=== PATIENT | female | born 1960 | race Caucasian/White ===

== ENCOUNTER → 2016-04-30 | Outpatient (CLI) | payer OTHER ==
--- NOTE | 2016-04-30 17:31 | DX ---
Right ankle 3 views History: Follow up talar neck avulsion fracture. Comparison: Foot same day, right ankle March 19, 2016. Findings: There is no visible residual lucency associated with a nondisplaced avulsion fracture at th e dorsal aspect of the talar neck. Alignment is normal. No new fracture is identified. The talar dome and ankle mortise are intact. Impression: Interval healing of a talar neck avulsion fracture.
--- NOTE | 2016-04-30 17:31 | DX ---
Right foot 3 views History: Followup talar neck avulsion fracture. Comparison: Right foot same day, Right foot and ankle March 19, 2016. Findings: There is no residual lucency associated with a nondisplaced dorsal talar neck avulsion frac ture. No new fracture is identified. Alignment is normal. Apparent fusion of the 3rd metatarsal and l ateral cuneiform is again noted. Impression: Interval healing of a dorsal talar neck avulsion fracture.
== END ==
LOC: BMCIMAGING 15:26
PROVIDERS: ATTEND Podiatrist Foot & Ankle Surgery
DX: S92.114D Nondisplaced fracture of neck of right talus, subsequent encounter for fracture with routine healing (principal)

== ENCOUNTER → 2016-05-31 | Outpatient (CLI) | payer OTHER ==
--- NOTE | 2016-05-31 17:39 | DX ---
DEXA Bone Mineral Densitometry Clinical Indications: Postmenopausal, family history of osteoporosis, history of wrist and ankle fra cture, history of breast cancer, thyroid disease on levothyroxine, screening for osteoporosis Comparison: 11/13/2012 (low bone density) Technique: Bone Mineral Densitometry (BMD) by Dual Energy X-Ray Absorptiometry (DEXA) was performed utilizing the LYFE Kitchen scanner. The lumbar spine was evaluated in the AP projection. The left hip and forearm were evaluated in the AP projection. Vertebral fracture assessment was also performe d. AP Lumbar Spine: The L1, L2, L3 and L4 vertebral bodies were evaluated. BMD: 1.085 gm/cm2 T-score: -0.9 SD Z-score: 0.6 SD No significant change. AP Left Hip: Neck BMD: 0.843 gm/cm2 T-score: -1.4 SD Z-score: 0.1 SD Total BMD is significantly decreased by 8.7% AP Left Forearm, 04/24: BMD: 0.794 gm/cm2 T-score: -0.9 SD Z-score: 0.3 SD AP Right forearm: 04/24 BMD: 0.818 g/cm2 T score: -0.7 Z score: 0 Significantly decreased by 7.7% Vertebral Fracture Assessment: No significant fracture deformity. No prevertebral aortic calcificati on, significant marginal bone spurring, facet arthrosis, or intrinsic vertebral body sclerosis that would effect the accuracy of the lumbar spine BMD measurement. Conclusion: Considering the lowest measured site, the patient has low bone density. The ten year FRAX risk for any major osteoporotic fracture is 20.6% and for a hip fracture is 1%. Any bone loss in this patient is probably related to aging or estrogen deficiency. According to the recommendations of the National Osteoporosis Foundation, this patient would be a goo d candidate for bone strengthening pharmacologic intervention. To prevent osteoporosis and to promote the patient's bone density, the following recommendations shou ld be considered: 1. Pursue a regular regimen of weightbearing and muscle strengthening exercises in order to reduce t he risk of falls and fractures (as tolerated by the patient's general medical condition). 2. Ensure that daily dietary calcium uptake is maximized. 3. Consider checking the serum vitamin D level. Ensure that intake of vitamin D is 600 IU per day (fo r all ages through 70) . 4. Consider follow-up DEXA scan in one year if the patient begins pharmacologic intervention or in 2 years if she follows a more conservative approach.
== END ==
LOC: FIMAGING 09:07
PROVIDERS: ATTEND Nurse Practitioner Obstetrics & Gynecology
DX: Z13.820 Encounter for screening for osteoporosis (principal); Z78.0 Asymptomatic menopausal state; Z82.62 Family history of osteoporosis; Z80.3 Family history of malignant neoplasm of breast; E03.9 Hypothyroidism, unspecified; M85.80 Other specified disorders of bone density and structure, unspecified site

== ENCOUNTER 2016-09-20 14:15 | Emergency (ER) | payer OTHER ==
[2016-09-20 14:31] VITALS: TEMP 97.7
--- NOTE | 2016-09-20 14:31 | CPEKG ---
Heart Rate: 77 RR Interval: 779 P-R Interval: 124 QRSD Interval: 74 QT Interval: 364 QTC Interval: 412 P [place]: 83 QRS [place]: 78 T Wave [place]: 46 EKG Severity - BORDERLINE ECG - EKG Impression: SINUS RHYTHM EKG Impression: BORDERLINE T WAVE ABNORMALITIES Electronically Signed By: Speedy Ledezma 20-Sep-2016 15:02:30
[2016-09-20] MEDS ORDERED: ASPIRIN 81 MG CHEWABLE TAB PO ONE (14:55)
--- NOTE | 2016-09-20 14:59 | EDPHY ---
H & P Stated Complaint: CP started last night, Sent by manager digital r/o clot Time Seen by Provider: 09/20/16 14:40 HPI/ROS: CHIEF COMPLAINT: Left-sided chest pain HISTORY OF PRESENT ILLNESS: The patient is a 56-year-old female who comes to the emergency department complaining of 12 hours left-sided chest pain. She has twinges of pain which last for several seconds at a time. She states that she has had these for her entire life but they have been very infrequent until today. Today it is constant. She denies shortness of breath. It does seem to hurt more certain movements. She was worried about pericarditis. No recent fevers or infections. She does have a history of breast cancer, bilateral mastectomy and radiation therapy that was discontinued about 2 years ago. 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 She has been doing well for the last few months. She denies lightheadedness or dizziness. She has not had a fever. No nausea vomiting or GI symptoms. She does have a history of familial hypercholesterolemia as well as a brother at 38 from heart disease. REVIEW OF SYSTEMS: Constitutional: denies: chills, fever, recent illness, recent injury EENTM: denies: blurred vision, double vision, nose congestion Respiratory: denies: cough, shortness of breath Cardiac: See HPI Gastrointestinal/Abdominal: denies: abdominal pain, diarrhea, nausea, vomiting, blood streaked stools Genitourinary: denies: dysuria, frequency, hematuria, pain Musculoskeletal: denies: joint pain, muscle pain Skin: denies: lesions, rash, jaundice, bruising Neurological: denies: headache, numbness, paresthesia, tingling, dizziness, weakness Hematologic/Lymphatic: denies: blood clots, easy bleeding, easy bruising Immunologic/allergic: denies: HIV/AIDS, transplant EXAM: GENERAL: Well-appearing, well-nourished and in no acute distress. HEAD: Atraumatic, normocephalic. EYES: Pupils equal round and reactive to light, extraocular movements intact, sclera anicteric, conjunctiva are normal. ENT: TMs normal, nares patent, oropharynx clear without exudates. Moist mucous membranes. NECK: Normal range of motion, supple without lymphadenopathy or JVD. LUNGS: Breath sounds clear to auscultation bilaterally and equal. No wheezes rales or rhonchi. HEART: Regular rate and rhythm without murmurs, rubs or gallops. ABDOMEN: Soft, nontender, normoactive bowel sounds. No guarding, no rebound. No masses appreciated. BACK: No CVA tenderness, no spinal tenderness, step-offs or deformities EXTREMITIES: Normal range of motion, no pitting or edema. No clubbing or cyanosis. NEUROLOGICAL: Cranial nerves II through XII grossly intact. Normal speech, normal gait. 5/5 strength, normal movement in all extremities, normal sensation PSYCH: Normal mood, normal affect. SKIN: Warm, dry, normal turgor, no visible rashes or lesions. Source: Patient Exam Limitations: No limitations - Personal History Current Tetanus Diphtheria and Acellular Pertussis (TDAP): Yes - Medical/Surgical History Hx Asthma: No Hx Chronic Respiratory Disease: No Hx Diabetes: No Hx Cardiac Disease: No Hx Renal Disease: No Hx Cirrhosis: No Hx Alcoholism: No Hx HIV/AIDS: No Hx Splenectomy or Spleen Trauma: No Other PMH: Breast CX dx in July 2014 w/double mastectomy, Right anterior hip replacement, high cholesterol - Family History Significant Family History: No pertinent family hx - Social History Smoking Status: Former smoker Alcohol Use: Sober Drug Use: None Constitutional: Initial Vital Signs Temperature (C) 36.5 C 09/20/16 14:22 Heart Rate 80 09/20/16 14:22 Respiratory Rate 16 09/20/16 14:22 Blood Pressure 126/73 H 09/20/16 14:22 O2 Sat (%) 97 09/20/16 14:22 O2 Delivery Mode Room Air Allergies/Adverse Reactions: amoxicillin [Amoxicillin] Allergy (Verified 09/24/11 18:58) Milk Containing Products [dairy] Allergy (Verified 09/20/16 14:33) Penicillins Allergy (Verified 09/20/16 14:32) Home Medications: Medication Instructions Recorded Cetirizine [ZyrTEC 10 mg (RX)] 0 mg PO DAILY 09/24/11 Levothyroxine [Synthroid 25 mcg 0 mcg PO DAILY06 09/24/11 (RX)] Simvastatin [Zocor 5 mg] 0 mg PO AD 09/24/11 Anastrozole [Arimidex 1 mg (*)] 09/20/16 Aspirin [Aspirin 81mg (*)] 81 mg PO DAILY 09/20/16 Calcium [HI-BERNY] 500 mg PO 09/20/16 Dha/Epa/Mv/Dng Mikael/Hrb42 [Pms 1 each PO 09/20/16 Women's Formula Tab] Glucosamine Sulfate Dipot Chlr 09/20/16 [Glucosamine] L.acidoph,Paracasei, B.lactis 1 each PO 09/20/16 [Probiotic] Valacyclovir HCl [Valacyclovir] 09/20/16 Medical Decision Making - Diagnostics EKG Interpretation: An EKG obtained and was read and documented in trace view. Please see trace view for full reading and report. Sinus rhythm, no acute ischemic changes. No [place] depression Imaging Results: Imaging Impressions Chest/Thorax CTA 09/20/16 14:55 Impression: 1. Negative for pulmonary emboli. 2. 6-mm round pulmonary nodule, right lower lobe. 3. Mild bronchial mucous plugging. Comment: According to the standards of the Fleischner Society, updated 2017, a 6 mm nodule merits follow-up CT at 6-12 month interval for high risk patient. I discussed results with Dr. Ledezma at 1615 hours. Imaging: Discussed imaging studies w/ medical research tech Radiologist ED Course/Re-evaluation: We discussed the CT and lab results. The patient and her are reassured. 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 She is also aware of the right lower lobe pulmonary nodule and is currently being followed by her oncologist. I recommended admission to the hospital for further cardiac rule out. She declines this. She will consent for a repeat troponin and then follow up with a manager digital within 72 hours for stress testing. 8:00 p.m. we discussed the repeat troponin. The patient is relieved. She is still having some tightness that seems more musculoskeletal. She declines admission. She will follow up with Cardiology within 72 hours. She will also follow up with her oncologist. We discussed indications for returning. Strict warnings were given. Differential Diagnosis: Partial list of the Differential diagnosis considered include but were not limited to; acute coronary disease, PE, musculoskeletal, GI and although unlikely based on the history and physical exam, I also considered pneumonia, pneumothorax. I discussed these differential diagnoses and the plan with the patient as well as the usual and expected course. The patient understands that the diagnosis is provisional and that in medicine we are not always correct and that further workup is often warranted. Usual and customary warnings were given. All of the patient's questions were answered. The patient was instructed to return to the emergency department should the symptoms at all worsen or return, otherwise to followup with the physician as we discussed. - Data Points Laboratory Results: Laboratory Results 09/20/16 14:35 09/20/16 14:35 09/20/16 09/20/16 09/20/16 18:45 14:35 14:35 WBC RBC Hgb Hct MCV MCH MCHC RDW Plt Count MPV Neut % (Auto) Lymph % (Auto) Bee % (Auto) Eos % (Auto) Baso % (Auto) Nucleat RBC Rel Count Absolute Neuts (auto) Absolute Lymphs (auto) Absolute Monos (auto) Absolute Eos (auto) Absolute Basos (auto) Absolute Nucleated RBC Immature Gran % Immature Gran # PT 12.6 SEC SEC (12.0-15.0) INR 0.95 (0.83-1.16) APTT 27.8 SEC SEC (23.0-38.0) Sodium 141 mEq/L mEq/L (134-144) Potassium 4.1 mEq/L mEq/L (3.5-5.2) Chloride 104 mEq/L mEq/L (97-110) Carbon Dioxide 25 mEq/l mEq/l (22-31) Anion Gap 12 mEq/L mEq/L (8-16) BUN 15 mg/dL mg/dL (7-23) Creatinine 0.8 mg/dL mg/dL (0.6-1.0) Estimated GFR > 60 Glucose 139 mg/dL H mg/dL (70-100) Calcium 9.5 mg/dL mg/dL (8.5-10.4) Total Bilirubin 0.9 mg/dL mg/dL (0.1-1.4) Conjugated Bilirubin 0.3 mg/dL mg/dL (0.0-0.5) Unconjugated Bilirubin 0.6 mg/dL mg/dL (0.0-1.1) AST 46 IU/L IU/L (14-46) ALT 44 IU/L IU/L (9-52) Alkaline Phosphatase 65 IU/L IU/L (38-126) Troponin I < 0.012 ng/mL ng/mL < 0.012 ng/mL ng/mL (0-0.034) (0-0.034) Total Protein 7.1 g/dL g/dL (6.3-8.2) Albumin 4.3 g/dL g/dL (3.5-5.0) Lipase 110.0 IU/L IU/L (23-300) 09/20/16 14:35 WBC 4.91 10^3/uL 10^3/uL (3.80-9.50) RBC 4.41 10^6/uL 10^6/uL (4.18-5.33) Hgb 13.8 g/dL g/dL (12.6-16.3) Hct 40.2 % % (38.0-47.0) MCV 91.2 fL fL (81.5-99.8) MCH 31.3 pg pg (27.9-34.1) MCHC 34.3 g/dL g/dL (32.4-36.7) RDW 12.2 % % (11.5-15.2) Plt Count 144 10^3/uL L 10^3/uL (150-400) MPV 10.5 fL fL (8.7-11.7) Neut % (Auto) 70.3 % % (39.3-74.2) Lymph % (Auto) 18.9 % % (15.0-45.0) Bee % (Auto) 7.3 % % (4.5-13.0) Eos % (Auto) 3.1 % % (0.6-7.6) Baso % (Auto) 0.2 % L % (0.3-1.7) Nucleat RBC Rel Count 0.0 % % (0.0-0.2) Absolute Neuts (auto) 3.45 10^3/uL 10^3/uL (1.70-6.50) Absolute Lymphs (auto) 0.93 10^3/uL L 10^3/uL (1.00-3.00) Absolute Monos (auto) 0.36 10^3/uL 10^3/uL (0.30-0.80) Absolute Eos (auto) 0.15 10^3/uL 10^3/uL (0.03-0.40) Absolute Basos (auto) 0.01 10^3/uL L 10^3/uL (0.02-0.10) Absolute Nucleated RBC 0.00 10^3/uL 10^3/uL (0-0.01) Immature Gran % 0.2 % % (0.0-1.1) Immature Gran # 0.01 10^3/uL 10^3/uL (0.00-0.10) PT INR APTT Sodium Potassium Chloride Carbon Dioxide Anion Gap BUN Creatinine Estimated GFR Glucose Calcium Total Bilirubin Conjugated Bilirubin Unconjugated Bilirubin AST ALT Alkaline Phosphatase Troponin I Total Protein Albumin Lipase Medications Given: Discontinued Medications Aspirin (Aspirin) 324 mg PO EDNOW ONE Stop: 09/20/16 14:56 Last Admin: 09/20/16 15:15 Dose: 324 mg Departure - Departure Disposition: Home, Routine, Self-Care Clinical Impression: Chest pain Qualifiers: Chest pain type: unspecified Qualified Code(s): R07.9 - Chest pain, unspecified Condition: Fair Instructions: Chest Pain (ED) Referrals: Jayson Restrepo MD [Primary Care Provider] - As per Instructions Brock Vieira MD [Medical Doctor] - As per Instructions
[2016-09-20 15:05] LABS: % IMMATURE GRANULYOCYTES 0.2 % (0.0-1.1); ABSOLUTE IMMATURE GRANULOCYTES 0.01 10^3/uL (0.00-0.10); ADD DIFF? NO; ADD MORPH? NO; ADD SCAN? NO; ATYPICAL LYMPHOCYTE FLAG 0 (0-99); FRAGMENT RBC FLAG 0 (0-99); HEMATOCRIT 40.2 % (38.0-47.0); HEMOGLOBIN 13.8 g/dL (12.6-16.3); LEFT SHIFT FLG 0 (0-99); LIPEMIA HEMOLYSIS FLAG 90 (0-99); MEAN CELL HEMOGLOBIN 31.3 pg (27.9-34.1); MEAN CELL HEMOGLOBIN CONCENTR. 34.3 g/dL (32.4-36.7); MEAN CELL VOLUME 91.2 fL (81.5-99.8); MEAN PLATELET VOLUME 10.5 fL (8.7-11.7); PLATELET CLUMPS FLAG 0 (0-99); PLATELET COUNT 144 10^3/uL (150-400); RED BLOOD CELL COUNT 4.41 10^6/uL (4.18-5.33); RED CELL DISTRIBUTION WIDTH 12.2 % (11.5-15.2)
[2016-09-20 15:18] LABS: ALANINE AMINOTRANSFERASE 44 IU/L (9-52); ALBUMIN 4.3 g/dL (3.5-5.0); ALKALINE PHOSPHATASE 65 IU/L (38-126); ANION GAP 12 mEq/L (8-16); ASPARTATE AMINOTRANSFERASE 46 IU/L (14-46); BILIRUBIN,TOTAL 0.9 mg/dL (0.1-1.4); BILIRUBIN-CONJUGATED 0.3 mg/dL (0.0-0.5); BILIRUBIN-UNCONJUGATED 0.6 mg/dL (0.0-1.1); CALCIUM 9.5 mg/dL (8.5-10.4); CARBON DIOXIDE 25 mEq/l (22-31); CHLORIDE 104 mEq/L (97-110); CREATININE 0.8 mg/dL (0.6-1.0); GLOMERULAR FILTRATION RATE > 60; GLUCOSE 139 mg/dL (70-100); POTASSIUM 4.1 mEq/L (3.5-5.2); SODIUM 141 mEq/L (134-144); TOTAL PROTEIN 7.1 g/dL (6.3-8.2)
[2016-09-20 15:21] LABS: INR 0.95 (0.83-1.16); PROTIME(PATIENT) 12.6 SEC (12.0-15.0)
[2016-09-20 15:22] LABS: APTT 27.8 SEC (23.0-38.0)
[2016-09-20] MEDS ORDERED: IOPAMIDOL (ISOVUE 370) 100 ML BTL IV ONE (15:22)
[2016-09-20 15:28] LABS: TROPONIN I < 0.012 ng/mL (0-0.034)
[2016-09-20 20:17] VITALS: BP 118/66; PULSE 66; RESP 14; O2SAT 98
== END 2016-09-20 20:17 | disposition home or self-care (01) ==
DX: R07.9 Chest pain, unspecified (principal); Z79.82 Long term (current) use of aspirin; Z85.3 Personal history of malignant neoplasm of breast; Z87.891 Personal history of nicotine dependence
CPT/HCPCS: Q9967